=== PATIENT | female | born 1940 | race Caucasian/White ===

== ENCOUNTER 2017-04-27 19:24 | Emergency (ER) | payer OTHER, BC ==
[~2017-04-27] VITALS: Ht 157.5 cm; Wt 86.3 kg
[~2017-04-27 19:24] MED LIST: AMITRIPTYLINE H50 MG PO; AMLODIPINE BESYL5 MG PO; ASPIR-LOW81 MG PO; B COMPLETE1 EACH PO; BENEFIBER PO; BENEFIBER98 GM PO; CALCIUM 600 +1 EAC2 PO; CALTRATE 600600 MG PO; COQ-10100 MG PO; DIFLUNISAL500 MG PO; GABAPENTIN300 MG PO; LOSARTAN-HCTZ1 EAC1 PO; MOVE FREE JOIN1 EACH PO; MOVE FREE PO; NEURONTIN300 MG PO; SIMVASTATIN40 MG PO; TYLENOL EXTRA500 MG PO; VITAMIN D1000 UNIT PO; [UNRECOGNIZED DRUG - OTHER] PO
[2017-04-27] MEDS ORDERED: NORCO 5/3251 TABLET PO (21:07)
[2017-04-27 21:44] VITALS: BP 164/89
== END 2017-04-27 21:44 | disposition home or self-care (01) ==
LOC: EME 19:24
DX: S76.011A Strain of muscle, fascia and tendon of right hip, initial encounter (principal); X50.9XXA Other and unspecified overexertion or strenuous movements or postures, initial encounter; Y93.E1 Activity, personal bathing and showering; I10 Essential (primary) hypertension; Z79.82 Long term (current) use of aspirin
CPT/HCPCS: 73502; 99281; 99283

== ENCOUNTER 2018-03-02 12:48 | Inpatient (IN) | payer OTHER, BC ==
[~2018-03-02] VITALS: Ht 157.5 cm
[~2018-03-02 12:48] MED LIST changes: -AMITRIPTYLINE H50 MG PO; +ELAVIL25 MG PO; +NORCO 5/3251 TABLET PO
[2018-03-02 13:50] LABS: HEMATOCRIT 39.4 % (36.0-46.0); HEMOGLOBIN 12.9 G/DL (11.9-15.5); MCH 31.5 PG (29.0-34.0); MCHC 32.7 G/DL (30.0-36.0); MCV 96.3 FL (83-99); RBC DIS.WIDTH-CV 14.2 % (11.8-14.6); RED BLOOD COUNT 4.09 M/uL (3.80-5.20); WHITE BLOOD COUNT 7.6 K/uL (4.1-10.2)
[2018-03-02 13:58] LABS: CHLORIDE 100 mEq/L (99-109); POTASSIUM 4.5 mEq/L (3.7-5.4); SODIUM 137 mEq/L (136-147)
[2018-03-02 13:59] LABS: GLUCOSE 135 mg/dL (70-99)
[2018-03-02 14:03] LABS: CREATININE 1.6 mg/dL (0.6-1.3); GFR ESTIMATE (CALCULATED) 33 mL/min/; PLATELET COUNT 204 K/uL (156-360)
[2018-03-02 14:04] LABS: UREA NITROGEN (BUN) 35 mg/dL (9-23)
[2018-03-02 14:19] LABS: APPEARANCE CLOUDY ((CLEAR)); BILIRUBIN NEGATIVE; BLOOD LARGE; COLOR AMBER ((YELLOW)); GLUCOSE (STRIP) NEGATIVE; KETONES NEGATIVE; LEUKOCYTES LARGE; NITRITE NEGATIVE; PROTEIN (STRIP) 100; SPECIFIC GRAVITY 1.012 (1.000-1.030); UROBILINOGEN 0.2 MG/DL (0.2-1.0)
[2018-03-02 15:02] LABS: EPITHELIAL CELLS NONE SEEN /HPF; MUCUS NONE SEEN /LPF; RED BLOOD CELLS TNTC /HPF (0-5); WHITE BLOOD CELLS TNTC /HPF (0-5)
[2018-03-02 15:03] LABS: BACTERIA NONE SEEN /HPF; UCUL ADDED? YES
[2018-03-02] MEDS ORDERED: DOLOBID500 MG PO (15:41)
[2018-03-02] MEDS ORDERED: SYNALAR 0.025%60 GM TP (15:43)
[2018-03-02] MEDS ORDERED: ZETIA10 MG PO (15:44)
[2018-03-02] MEDS ORDERED: ZOLOFT25 MG PO (15:47)
[2018-03-02 16:20] LABS: ALBUMIN 3.2 g/dL (3.2-4.8)
[2018-03-02 17:09] LABS: THYROTROPIN (TSH) 1.3 MIU/L (0.4-5.5)
[2018-03-02 20:00] VITALS: BP 172/77
[2018-03-03] VITALS (7 sets, daily range): BP systolic 127–153; BP diastolic 63–93
[2018-03-03 06:24] LABS: HEMATOCRIT 38.5 % (36.0-46.0); HEMOGLOBIN 12.1 G/DL (11.9-15.5); MCHC 31.4 G/DL (30.0-36.0); MCV 95.5 FL (83-99); PLATELET COUNT 180 K/uL (156-360); RBC DIS.WIDTH-CV 14.2 % (11.8-14.6); RBC DIS.WIDTH-SD 49.5 % (39-53); RED BLOOD COUNT 4.03 M/uL (3.80-5.20)
[2018-03-03 06:57] LABS: ALBUMIN 2.8 G/DL (3.2-4.8); ALKALINE PHOSPHATASE 73 IU/L (3-129); ALT (GPT) 13 IU/L (3-49); AST (GOT) 21 IU/L (2-34); CHLORIDE 103 MEQ/L (99-109); CREATININE 1.3 MG/DL (0.6-1.3); GFR ESTIMATE (CALCULATED) 42 mL/min/; POTASSIUM 4.3 MEQ/L (3.7-5.4); SODIUM 138 MEQ/L (136-147); TOTAL BILIRUBIN 0.3 MG/DL (0.0-1.0); TOTAL PROTEIN 5.3 G/DL (6.4-8.3); UREA NITROGEN (BUN) 28 mg/dL (9-23)
[2018-03-03 07:00] LABS: GLUCOSE 86 mg/dL (70-99)
[2018-03-04 04:00] VITALS: BP 159/76
[2018-03-04 07:03] LABS: CHLORIDE 104 MEQ/L (99-109); CREATININE 1.2 MG/DL (0.6-1.3); GFR ESTIMATE (CALCULATED) 46 mL/min/; GLUCOSE 88 mg/dL (70-99); SODIUM 137 MEQ/L (136-147); UREA NITROGEN (BUN) 25 mg/dL (9-23)
[2018-03-04 07:50] VITALS: BP 134/65
[2018-03-04 11:36] VITALS: BP 157/73
[2018-03-04 15:16] VITALS: BP 124/60
[2018-03-04 20:22] VITALS: BP 144/81
[2018-03-05 00:27] VITALS: BP 149/77
[2018-03-05 04:20] VITALS: BP 136/56
[2018-03-05 07:34] VITALS: BP 107/72
[2018-03-05 11:46] VITALS: BP 126/60
[2018-03-05 11:59] LABS: HEMATOCRIT 34.7 % (36.0-46.0); HEMOGLOBIN 11.2 G/DL (11.9-15.5); MCH 30.1 PG (29.0-34.0); MCHC 32.3 G/DL (30.0-36.0); MCV 93.3 FL (83-99); PLATELET COUNT 152 K/uL (156-360); RBC DIS.WIDTH-CV 14.4 % (11.8-14.6); RBC DIS.WIDTH-SD 49.2 % (39-53); RED BLOOD COUNT 3.72 M/uL (3.80-5.20); WHITE BLOOD COUNT 9.4 K/uL (4.1-10.2)
[2018-03-05 12:33] LABS: CHLORIDE 105 MEQ/L (99-109); CREATININE 1.2 MG/DL (0.6-1.3); GFR ESTIMATE (CALCULATED) 46 mL/min/; GLUCOSE 110 mg/dL (70-99); POTASSIUM 4.5 MEQ/L (3.7-5.4); SODIUM 137 MEQ/L (136-147); UREA NITROGEN (BUN) 27 mg/dL (9-23)
[2018-03-05 15:57] VITALS: BP 140/62
[2018-03-05 19:58] VITALS: BP 137/65
[2018-03-06 00:21] VITALS: BP 123/57
[2018-03-06 04:09] VITALS: BP 107/60
[2018-03-06 08:26] VITALS: BP 141/67
[2018-03-06] MEDS ORDERED: BACTRIM,SEPT1 TABLET PO (11:06)
[2018-03-06 11:44] VITALS: BP 153/66
== END 2018-03-06 14:11 | DRG 690 ==
LOC: EME 12:48 → 5SOUTH 15:40 → EDOF 15:40 → ENRESERV 15:54 → 5SOUTH 17:59
PROVIDERS: Physician Assistant Medical
DX: N30.01 Acute cystitis with hematuria (principal); N17.9 Acute kidney failure, unspecified; E85.9 Amyloidosis, unspecified; F05 Delirium due to known physiological condition; F33.9 Major depressive disorder, recurrent, unspecified; N28.1 Cyst of kidney, acquired; E78.5 Hyperlipidemia, unspecified; E86.0 Dehydration; G30.9 Alzheimer's disease, unspecified; F02.80 Dementia in other diseases classified elsewhere, unspecified severity, without behavioral disturbance, psychotic disturbance, mood disturbance, and anxiety; G62.9 Polyneuropathy, unspecified; I10 Essential (primary) hypertension; I48.91 Unspecified atrial fibrillation; R09.02 Hypoxemia; N39.498 Other specified urinary incontinence; Z95.0 Presence of cardiac pacemaker; Z87.440 Personal history of urinary (tract) infections; Z85.3 Personal history of malignant neoplasm of breast; Z82.3 Family history of stroke
CPT/HCPCS: 71046; 76770; 80048; 80053; 81003; 82040; 83605; 84443; 85027; 86850; 86900; 86901; 87040; 87086; 94799; 97530 GO; 97530 GP; 99281; 99284; J0696; J1644; J1956; J2405; J7030